=== PATIENT | male | born 1985 | race Caucasian/White ===

== ENCOUNTER 2019-10-27 15:14 | Emergency (ER) | payer OTHER ==
[~2019-10-27] VITALS: Ht 177.8 cm; Wt 95.3 kg
[~2019-10-27 15:14] MED LIST: ADDERALL30 MG PO; AMLODIPINE BESYL5 MG PO; DAYPRO600 M1 PO; LINEZOLID600 MG PO; Motrin,Rufen800 MG PO; NORCO 10-325 T1 EACH PO; ORPHENADRINE C100 M1 PO; PERCOCET 325 MG1 TA2 PO; PREDNISONE10 MG PO; ROBAXIN750 MG PO; SEROQUEL100 MG PO; SEROQUEL400 M1 PO; TRAMADOL HCL50 MG PO; Zestril,Prinivi40 MG PO
[2019-10-27] MEDS ORDERED: SEPTDS PO (16:02)
[2019-10-27] MEDS ORDERED: TYLENOL325 M1 PO (16:02)
== END 2019-10-27 16:06 | disposition home or self-care (01) ==
LOC: ED 15:14
DX: L02.416 Cutaneous abscess of left lower limb (principal); I10 Essential (primary) hypertension; E66.01 Morbid (severe) obesity due to excess calories; F17.200 Nicotine dependence, unspecified, uncomplicated; Z68.42 Body mass index [BMI] 45.0-49.9, adult; Z91.030 Bee allergy status

== ENCOUNTER 2019-11-15 12:56 | Emergency (ER) | payer OTHER ==
[~2019-11-15 12:56] MED LIST changes: +SEPTDS PO; +TYLENOL325 M1 PO
[2019-11-15 16:37] LABS: BASO # 0.1 10*3/uL (0.0-0.1); BASO % 0.4 % (0.0-1.0); EOS % 0.3 % (1.0-4.0); HEMATOCRIT 44.5 % (42.0-52.0); LYMPH # 3.4 10*3/uL (1.3-4.4); LYMPH % 29.8 % (27.0-41.0); MEAN CELL VOLUME 85.2 fl (80.0-94.0); MEAN CORPUSCULAR HGB 29.7 pg (27.0-31.0); MEAN CORPUSCULAR HGB CONC 34.8 g/dl (33.0-37.0); MEAN PLATELET VOLUME 9.9 fl (9.6-12.3); MONO # 0.8 10*3/uL (0.1-1.0); MONO % 6.9 % (3.0-9.0); NEUT # 7.1 10*3/uL (2.3-7.9); NEUT % 62.2 % (47.0-73.0); PLATELET COUNT AUTOMATED 236 10*3/uL (130-400); RED BLOOD COUNT 5.22 10*6/uL (4.50-5.90); RED CELL DISTRI WIDTH 13.1 % (0-14.5); WHITE BLOOD COUNT 11.3 10*3/uL (4.8-10.8)
[2019-11-15 16:48] LABS: ACT PARTIAL THROMBO TIME 24.5 SECONDS (20.0-32.1); INTERNATIONAL NORM RATIO 0.9 (2.0-3.5)
[2019-11-15 16:53] LABS: ALBUMIN 3.6 gm/dl (3.1-4.5); ALKALINE PHOSPHATASE 90 U/L (45-117); BUN 17 mg/dl (7-24); CHLORIDE 106 mmol/L (98-107); LIPASE 55 U/L (73-393); POTASSIUM 3.1 mmol/L (3.5-5.1); SGOT/AST 24 IU/L (3-35); SGPT/ALT 30 U/L (12-78); SODIUM 140 mmol/L (136-145); TOTAL PROTEIN 8.1 gm/dL (6.4-8.2)
[2019-11-15 16:55] LABS: ACETAMINOPHEN (TYLENOL) < 5.0 ug/ml (10-30); ETHYL ALCOHOL < 3.0 mg/dl (<3); TROPONIN I < 0.015 ng/ml (<0.045)
[2019-11-16 05:29] LABS: URINE AMPHETAMINES > 1000 (1000ng/ml); URINE BARBITURATES < 200 (200ng/ml); URINE BENZODIAZEPINES < 200 (200ng/ml); URINE CANNABINOIDS (THC) > 50 (50ng/ml); URINE COCAINE < 300 (300ng/ml); URINE METHADONE < 300 (300ng/ml); URINE OPIATES < 300 (300ng/ml)
[2019-11-16 05:34] LABS: URINE PHENCYCLIDINE < 25 (25ng/ml)
[2019-11-16 05:42] LABS: BILIRUBIN NEGATIVE (NEGATIVE); BLOOD TRACE-LYSED (NEGATIVE); CLARITY SL CLOUDY (CLEAR); COLOR YELLOW (YELLOW); GLUCOSE NEGATIVE (NEGATIVE); KETONE NEGATIVE (NEGATIVE)
[2019-11-16 05:43] LABS: BACTERIA 1+; EPITHELIAL CELLS 0-2; LEUKO ESTERASE NEGATIVE (NEGATIVE); MUCOUS 3+; NITRITE NEGATIVE (NEGATIVE); UROBILINOGEN 0.2 E.U./dl (0.2-1.0)
== END 2019-11-16 06:13 | disposition home or self-care (01) ==
LOC: ED 12:56
PROVIDERS: Emergency Medicine
DX: F19.10 Other psychoactive substance abuse, uncomplicated (principal); I10 Essential (primary) hypertension; E66.01 Morbid (severe) obesity due to excess calories; Z68.42 Body mass index [BMI] 45.0-49.9, adult; Z91.030 Bee allergy status

== ENCOUNTER 2020-06-27 14:58 | Emergency (ER) | payer OTHER ==
[~2020-06-27] VITALS: Ht 177.8 cm; Wt 89.8 kg
[2020-06-27 16:03] LABS: BASO # 0.1 10*3/uL (0.0-0.1); BASO % 0.6 % (0.0-1.0); EOS # 0.1 10*3/uL (0.0-0.4); EOS % 1.4 % (1.0-4.0); HEMATOCRIT 41.4 % (42.0-52.0); LYMPH # 2.8 10*3/uL (1.3-4.4); LYMPH % 32.4 % (27.0-41.0); MEAN CELL VOLUME 83.1 fl (80.0-94.0); MEAN CORPUSCULAR HGB 28.1 pg (27.0-31.0); MEAN CORPUSCULAR HGB CONC 33.8 g/dl (33.0-37.0); MEAN PLATELET VOLUME 9.3 fl (9.6-12.3); MONO # 0.5 10*3/uL (0.1-1.0); MONO % 6.2 % (3.0-9.0); NEUT # 5.1 10*3/uL (2.3-7.9); NEUT % 59.2 % (47.0-73.0); PLATELET COUNT AUTOMATED 229 10*3/uL (130-400); RED BLOOD COUNT 4.98 10*6/uL (4.50-5.90); WHITE BLOOD COUNT 8.6 10*3/uL (4.8-10.8)
[2020-06-27 16:23] LABS: ALBUMIN 3.3 gm/dl (3.1-4.5); ALKALINE PHOSPHATASE 85 U/L (45-117); BUN 11 mg/dl (7-24); CHLORIDE 105 mmol/L (98-107); CREATININE 0.64 mg/dL (0.70-1.30); POTASSIUM 3.5 mmol/L (3.5-5.1); SGOT/AST 12 IU/L (3-35); SGPT/ALT 23 U/L (12-78); SODIUM 139 mmol/L (136-145); TOTAL PROTEIN 7.8 gm/dL (6.4-8.2)
[2020-06-27] MEDS ORDERED: DOXYCYCLINE100 M3 PO (16:55)
== END 2020-06-27 17:35 | disposition home or self-care (01) ==
LOC: ED 14:58
PROVIDERS: Nurse Practitioner
DX: L08.9 Local infection of the skin and subcutaneous tissue, unspecified (principal); M79.645 Pain in left finger(s); F31.9 Bipolar disorder, unspecified; F98.8 Other specified behavioral and emotional disorders with onset usually occurring in childhood and adolescence; F17.200 Nicotine dependence, unspecified, uncomplicated; Z91.030 Bee allergy status; Z79.899 Other long term (current) drug therapy; Z79.2 Long term (current) use of antibiotics

== ENCOUNTER 2020-07-15 16:05 | Inpatient (IN) | payer SELFPAY ==
[~2020-07-15] VITALS: Ht 175.2 cm; Wt 83.2 kg
[~2020-07-15 16:05] MED LIST changes: +DOXYCYCLINE100 M3 PO
[2020-07-15 16:18] VITALS: BP 163/80
[2020-07-15 17:13] LABS: BASO % 0.4 % (0.0-1.0); EOS % 0.3 % (1.0-4.0); HEMATOCRIT 42.6 % (42.0-52.0); LYMPH # 1.9 10*3/uL (1.3-4.4); LYMPH % 24.2 % (27.0-41.0); MEAN CORPUSCULAR HGB 28.5 pg (27.0-31.0); MEAN CORPUSCULAR HGB CONC 33.6 g/dl (33.0-37.0); MEAN PLATELET VOLUME 9.7 fl (9.6-12.3); MONO # 0.5 10*3/uL (0.1-1.0); MONO % 6.4 % (3.0-9.0); NEUT # 5.4 10*3/uL (2.3-7.9); NEUT % 68.6 % (47.0-73.0); PLATELET COUNT AUTOMATED 203 10*3/uL (130-400); RED BLOOD COUNT 5.01 10*6/uL (4.50-5.90); RED CELL DISTRI WIDTH 13.9 % (0-14.5); WHITE BLOOD COUNT 7.8 10*3/uL (4.8-10.8)
[2020-07-15 17:24] LABS: ACT PARTIAL THROMBO TIME 27.5 SECONDS (20.0-32.1)
[2020-07-15 17:32] LABS: ALBUMIN 3.4 gm/dl (3.1-4.5); ALKALINE PHOSPHATASE 99 U/L (45-117); BUN 17 mg/dl (7-24); CHLORIDE 106 mmol/L (98-107); CREATININE 0.92 mg/dL (0.70-1.30); POTASSIUM 3.3 mmol/L (3.5-5.1); SGOT/AST 43 IU/L (3-35); SGPT/ALT 119 U/L (12-78); SODIUM 141 mmol/L (136-145)
[2020-07-15 17:32] LABS: BILIRUBIN 1+ (Negative); BLOOD Negative (Negative); CLARITY Clear (Clear); COLOR Dark Yellow (Yellow); GLUCOSE Negative (Negative); KETONE Trace (Negative); LEUKO ESTERASE Negative (Negative); NITRITE Negative (Negative); SPECIFIC GRAVITY >= 1.030 (1.001-1.030)
[2020-07-15 17:33] LABS: TROPONIN I < 0.015 ng/ml (<0.045)
[2020-07-15 17:46] LABS: BACTERIA TRACE; CALCIUM OXALATE CRYSTALS 3+; MUCOUS 2+
[2020-07-15 19:22] VITALS: BP 148/97
[2020-07-15] MEDS ORDERED: SUBOXONE 8 MG-1 EACH SL (19:43)
[2020-07-15] MEDS ORDERED: MIXED AMPHETAMI30 MG PO (19:43)
[2020-07-15] MEDS ORDERED: BUPROPION HCL150 M1 PO (19:44)
[2020-07-15 20:57] VITALS: BP 126/68
[2020-07-16] VITALS (9 sets, daily range): BP systolic 130–156; BP diastolic 88–109
[2020-07-16 06:40] LABS: BASO % 0.9 % (0.0-1.0); EOS # 0.1 10*3/uL (0.0-0.4); HEMATOCRIT 41.3 % (42.0-52.0); LYMPH # 2.2 10*3/uL (1.3-4.4); LYMPH % 47.6 % (27.0-41.0); MEAN CORPUSCULAR HGB 28.7 pg (27.0-31.0); MEAN CORPUSCULAR HGB CONC 32.2 g/dl (33.0-37.0); MONO # 0.4 10*3/uL (0.1-1.0); MONO % 9.6 % (3.0-9.0); NEUT # 1.8 10*3/uL (2.3-7.9); NEUT % 39.7 % (47.0-73.0); PLATELET COUNT AUTOMATED 174 10*3/uL (130-400); RED BLOOD COUNT 4.64 10*6/uL (4.50-5.90); RED CELL DISTRI WIDTH 14.4 % (0-14.5); WHITE BLOOD COUNT 4.6 10*3/uL (4.8-10.8)
[2020-07-16 06:49] LABS: BUN 13 mg/dl (7-24); CHLORIDE 107 mmol/L (98-107); CREATININE 0.68 mg/dL (0.70-1.30); POTASSIUM 3.8 mmol/L (3.5-5.1); SGOT/AST 43 IU/L (3-35); SGPT/ALT 109 U/L (12-78); SODIUM 141 mmol/L (136-145)
[2020-07-16 06:55] LABS: ALKALINE PHOSPHATASE 83 U/L (45-117)
[2020-07-17] VITALS: BP 137/89
[2020-07-17 08:00] VITALS: BP 132/84
[2020-07-17 12:00] VITALS: BP 117/51; BP 145/85
[2020-07-17 13:06] LABS: ACID FAST SPEC PROCESSING Tissue Grinding (.)
[2020-07-17 16:00] VITALS: BP 135/91
[2020-07-17 20:00] VITALS: BP 148/92; BP 162/107
[2020-07-18] VITALS: BP 140/104; BP 146/96
[2020-07-18 08:00] VITALS: BP 150/107
[2020-07-18 12:00] VITALS: BP 157/98
[2020-07-18] MEDS ORDERED: DOXYCYCLINE100 M3 PO (16:15)
[2020-07-18] MEDS ORDERED: LEVOFLOXACIN750 M2 PO (16:15)
[2020-07-18] MEDS ORDERED: AMOXICILLIN500 M3 PO (16:15)
[2020-09-03 12:07] LABS: ACID FAST CULTURE Negative (.)
== END 2020-07-18 16:26 | disposition left against medical advice (07) | DRG 854 ==
LOC: ED 16:05 → 5E 19:20 → EDHOLD 19:20 → 4E 20:48 → 5E 20:51
PROVIDERS: Internal Medicine; Nurse Practitioner Family; Orthopaedic Surgery; ADMIT Emergency Medicine; ATTEND Emergency Medicine
PROC: 0PBV0ZZ Excision of Left Finger Phalanx, Open Approach (ICD-10-PCS; principal; 2020-07-17)
DX: A41.9 Sepsis, unspecified organism (principal); E44.0 Moderate protein-calorie malnutrition; M86.142 Other acute osteomyelitis, left hand; G40.802 Other epilepsy, not intractable, without status epilepticus; M86.642 Other chronic osteomyelitis, left hand; R65.20 Severe sepsis without septic shock; E87.6 Hypokalemia; D72.819 Decreased white blood cell count, unspecified; F31.9 Bipolar disorder, unspecified; M06.9 Rheumatoid arthritis, unspecified; F17.210 Nicotine dependence, cigarettes, uncomplicated; D64.9 Anemia, unspecified; R74.01 Elevation of levels of liver transaminase levels; B19.20 Unspecified viral hepatitis C without hepatic coma; I10 Essential (primary) hypertension; B95.4 Other streptococcus as the cause of diseases classified elsewhere; Z20.822 Contact with and (suspected) exposure to COVID-19; B95.62 Methicillin resistant Staphylococcus aureus infection as the cause of diseases classified elsewhere; E66.01 Morbid (severe) obesity due to excess calories; Z53.29 Procedure and treatment not carried out because of patient's decision for other reasons; B96.5 Pseudomonas (aeruginosa) (mallei) (pseudomallei) as the cause of diseases classified elsewhere; R73.9 Hyperglycemia, unspecified; E83.41 Hypermagnesemia; Z91.030 Bee allergy status; Z83.3 Family history of diabetes mellitus; Z82.49 Family history of ischemic heart disease and other diseases of the circulatory system; Z84.0 Family history of diseases of the skin and subcutaneous tissue; Z79.899 Other long term (current) drug therapy; Z68.27 Body mass index [BMI] 27.0-27.9, adult

== ENCOUNTER 2021-01-07 13:55 | Emergency (ER) | payer OTHER ==
[~2021-01-07] VITALS: Ht 175.2 cm; Wt 77.1 kg
[~2021-01-07 13:55] MED LIST changes: +AMOXICILLIN500 M3 PO; +BUPROPION HCL150 M1 PO; +LEVOFLOXACIN750 M2 PO; +MIXED AMPHETAMI30 MG PO; +SUBOXONE 8 MG-1 EACH SL
[2021-01-07 14:58] LABS: BASO % 0.6 % (0.0-1.0); EOS % 0.4 % (1.0-4.0); HEMATOCRIT 38.7 % (42.0-52.0); LYMPH # 1.9 10*3/uL (1.3-4.4); LYMPH % 27.5 % (27.0-41.0); MEAN CELL VOLUME 83.4 fl (80.0-94.0); MEAN CORPUSCULAR HGB 27.8 pg (27.0-31.0); MEAN CORPUSCULAR HGB CONC 33.3 g/dl (33.0-37.0); MEAN PLATELET VOLUME 9.5 fl (9.6-12.3); MONO # 0.5 10*3/uL (0.1-1.0); MONO % 6.9 % (3.0-9.0); NEUT # 4.6 10*3/uL (2.3-7.9); NEUT % 64.5 % (47.0-73.0); PLATELET COUNT AUTOMATED 245 10*3/uL (130-400); RED BLOOD COUNT 4.64 10*6/uL (4.50-5.90); RED CELL DISTRI WIDTH 13.3 % (0-14.5); WHITE BLOOD COUNT 7.1 10*3/uL (4.8-10.8)
[2021-01-07 15:14] LABS: ACETAMINOPHEN (TYLENOL) < 5.0 ug/ml (10-30); ALBUMIN 3.4 gm/dl (3.1-4.5); ALKALINE PHOSPHATASE 95 U/L (45-117); BUN 22 mg/dl (7-24); CHLORIDE 111 mmol/L (98-107); CREATININE 0.79 mg/dL (0.70-1.30); ETHYL ALCOHOL < 3.0 mg/dl (<3); LIPASE 31 U/L (73-393); POTASSIUM 3.4 mmol/L (3.5-5.1); SGOT/AST 29 IU/L (3-35); SGPT/ALT 50 U/L (12-78); SODIUM 142 mmol/L (136-145); TOTAL PROTEIN 8.2 gm/dL (6.4-8.2); TROPONIN I < 0.015 ng/ml (<0.045)
[2021-01-07 16:26] LABS: BILIRUBIN Negative (Negative); BLOOD Trace-Lysed (Negative); CLARITY Clear (Clear); COLOR Yellow (Yellow); GLUCOSE Negative (Negative); KETONE Negative (Negative); LEUKO ESTERASE Negative (Negative); NITRITE Negative (Negative); PH 5.5 (4.5-8.0); UROBILINOGEN 0.2 E.U./dl (0.0-1.0)
[2021-01-07 16:34] LABS: BACTERIA TRACE; EPITHELIAL CELLS 0-2; RBC 0-2 rbc/hpf (0-2)
[2021-01-07 16:35] LABS: URINE AMPHETAMINES > 1000 (1000ng/ml); URINE BARBITURATES < 200 (200ng/ml); URINE BENZODIAZEPINES < 200 (200ng/ml); URINE CANNABINOIDS (THC) < 50 (50ng/ml); URINE COCAINE < 300 (300ng/ml); URINE METHADONE > 300 (300ng/ml); URINE OPIATES < 300 (300ng/ml); URINE PHENCYCLIDINE < 25 (25ng/ml)
== END 2021-01-07 19:58 | disposition left against medical advice (07) ==
LOC: ED 13:55
PROVIDERS: Emergency Medicine
DX: F15.90 Other stimulant use, unspecified, uncomplicated (principal); F20.9 Schizophrenia, unspecified; F17.200 Nicotine dependence, unspecified, uncomplicated; Z91.030 Bee allergy status; Z79.2 Long term (current) use of antibiotics; Z79.899 Other long term (current) drug therapy

== ENCOUNTER 2022-04-23 10:17 | Emergency (ER) | payer MEDICAID ==
[~2022-04-23] VITALS: Ht 177.8 cm; Wt 81.6 kg
[2022-04-23 13:48] LABS: BASO # 0.1 10*3/uL (0.0-0.1); BASO % 0.5 % (0.0-1.0); EOS % 0.3 % (1.0-4.0); HEMATOCRIT 40.8 % (42.0-52.0); LYMPH # 1.3 10*3/uL (1.3-4.4); LYMPH % 11.7 % (27.0-41.0); MEAN CELL VOLUME 84.6 fl (80.0-94.0); MEAN CORPUSCULAR HGB 29.5 pg (27.0-31.0); MEAN CORPUSCULAR HGB CONC 34.8 g/dl (33.0-37.0); MEAN PLATELET VOLUME 9.9 fl (9.6-12.3); MONO # 0.4 10*3/uL (0.1-1.0); MONO % 3.4 % (3.0-9.0); NEUT % 83.7 % (47.0-73.0); PLATELET COUNT AUTOMATED 256 10*3/uL (130-400); RED BLOOD COUNT 4.82 10*6/uL (4.50-5.90); RED CELL DISTRI WIDTH 13.9 % (0-14.5); WHITE BLOOD COUNT 10.7 10*3/uL (4.8-10.8)
[2022-04-23 14:05] LABS: ACT PARTIAL THROMBO TIME 27.9 SECONDS (20.0-32.1); INTERNATIONAL NORM RATIO 0.9 (2.0-3.5)
[2022-04-23 14:09] LABS: ALKALINE PHOSPHATASE 87 U/L (46-116); BUN 14 mg/dl (9-23); CHLORIDE 103 mmol/L (98-107); CPK 231 U/L (34-171); CREATININE 0.57 mg/dL (0.70-1.30); POTASSIUM 3.2 mmol/L (3.4-5.1); SGPT/ALT 41 U/L (10-49); SODIUM 138 mmol/L (136-145); TOTAL PROTEIN 7.5 gm/dL (6.0-8.0)
[2022-04-23 14:12] LABS: ETHYL ALCOHOL < 3.0 mg/dl (<3)
[2022-04-23 15:00] LABS: URINE AMPHETAMINES Positive (1000ng/ml); URINE BARBITURATES Negative (200ng/ml); URINE BENZODIAZEPINES Negative (200ng/ml); URINE CANNABINOIDS (THC) Positive (50ng/ml); URINE COCAINE Negative (300ng/ml); URINE METHADONE Negative (300ng/ml); URINE OPIATES Negative (300ng/ml); URINE PHENCYCLIDINE Negative (25ng/ml)
== END 2022-04-23 16:30 | disposition short-term general hospital (02) ==
LOC: ED 10:17
PROVIDERS: Family Medicine
DX: S02.0XXA Fracture of vault of skull, initial encounter for closed fracture (principal); S01.112A Laceration without foreign body of left eyelid and periocular area, initial encounter; S61.412A Laceration without foreign body of left hand, initial encounter; Z91.030 Bee allergy status; F19.10 Other psychoactive substance abuse, uncomplicated; Z79.899 Other long term (current) drug therapy; F17.200 Nicotine dependence, unspecified, uncomplicated; Y00.XXXA Assault by blunt object, initial encounter; Y93.89 Activity, other specified; Y92.89 Other specified places as the place of occurrence of the external cause; Y99.8 Other external cause status

== ENCOUNTER 2023-08-06 12:35 | Emergency (ER) | payer MEDICAID ==
[~2023-08-06] VITALS: Ht 177.8 cm; Wt 81.6 kg
[2023-08-06] MEDS ORDERED: CLINDAMYCIN HCL 300 MG CAPSULE PO ONE (12:40)
[2023-08-06] MEDS ORDERED: CLINDAMYCIN HC300 MG PO ×2 (12:44→13:15)
== END 2023-08-06 13:16 | disposition home or self-care (01) ==
LOC: ED 12:35
DX: L03.90 Cellulitis, unspecified (principal); Z91.030 Bee allergy status; F17.200 Nicotine dependence, unspecified, uncomplicated; I10 Essential (primary) hypertension; F31.9 Bipolar disorder, unspecified

== ENCOUNTER 2024-02-06 20:31 | Emergency (ER) | payer MEDICAID ==
[~2024-02-06] VITALS: Ht 175.2 cm; Wt 83.9 kg
[~2024-02-06 20:31] MED LIST changes: +CLINDAMYCIN HC300 MG PO
[2024-02-06 21:49] LABS: BASO % 0.4 % (0.0-1.0); EOS % 0.3 % (1.0-4.0); LYMPH # 1.7 10*3/uL (1.3-4.4); LYMPH % 17.8 % (27.0-41.0); MEAN CELL VOLUME 83.3 fl (80.0-94.0); MEAN CORPUSCULAR HGB 27.6 pg (27.0-31.0); MEAN CORPUSCULAR HGB CONC 33.2 g/dl (33.0-37.0); MEAN PLATELET VOLUME 9.8 fl (9.6-12.3); MONO # 0.7 10*3/uL (0.1-1.0); MONO % 6.7 % (3.0-9.0); NEUT # 7.3 10*3/uL (2.3-7.9); NEUT % 74.6 % (47.0-73.0); PLATELET COUNT AUTOMATED 236 10*3/uL (130-400); RED BLOOD COUNT 4.56 10*6/uL (4.50-5.90); RED CELL DISTRI WIDTH 14.6 % (0-14.5); WHITE BLOOD COUNT 9.8 10*3/uL (4.8-10.8)
[2024-02-06 22:09] LABS: BUN 17 mg/dl (9-23); CHLORIDE 103 mmol/L (98-107); POTASSIUM 2.8 mmol/L (3.4-5.1)
[2024-02-06] MEDS ORDERED: POTASSIUM CHLORIDE 20 MEQ TAB PO ONE (23:30)
[2024-02-06] MEDS ORDERED: SODIUM CHLORIDE 0.9% 500 ML IV ONE (23:50)
[2024-02-07] MEDS ORDERED: POTASSIUM CHLORIDE IN WATER 100 ML IV SCH
== END 2024-02-07 01:00 | disposition left against medical advice (07) ==
LOC: ED 20:31
PROVIDERS: Emergency Medicine
DX: S40.929A Unspecified superficial injury of unspecified upper arm, initial encounter (principal); S80.929A Unspecified superficial injury of unspecified lower leg, initial encounter; E87.6 Hypokalemia; F31.9 Bipolar disorder, unspecified; M19.90 Unspecified osteoarthritis, unspecified site; Z91.030 Bee allergy status; E83.41 Hypermagnesemia; F17.200 Nicotine dependence, unspecified, uncomplicated; X58.XXXA Exposure to other specified factors, initial encounter; Y93.89 Activity, other specified; Y92.89 Other specified places as the place of occurrence of the external cause; Y99.8 Other external cause status

== ENCOUNTER 2024-12-18 15:39 | Emergency (ER) | payer OTHER ==
[~2024-12-18] VITALS: Ht 177.8 cm; Wt 89.8 kg
[2024-12-18 21:46] LABS: BILIRUBIN Negative (Negative); BLOOD Negative (Negative); CLARITY Turbid (Clear); COLOR Yellow (Yellow); KETONE Negative (Negative); LEUKO ESTERASE Negative (Negative); NITRITE Negative (Negative); PH 7.0 (4.5-8.0); SPECIFIC GRAVITY 1.020 (1.001-1.030); UROBILINOGEN 1.0 E.U./dl (0.0-1.0)
[2024-12-18 21:54] LABS: URINE AMPHETAMINES Positive (1000ng/ml); URINE BARBITURATES Negative (200ng/ml); URINE BENZODIAZEPINES Negative (200ng/ml); URINE CANNABINOIDS (THC) Positive (50ng/ml); URINE COCAINE Negative (300ng/ml); URINE METHADONE Negative (300ng/ml); URINE OPIATES Negative (300ng/ml); URINE PHENCYCLIDINE Negative (25ng/ml)
[2024-12-18 22:04] LABS: BACTERIA 2+; WBC 0-2 wbc/hpf (0-5)
[2024-12-18] MEDS ORDERED: AZITHROMYCIN 250 MG TAB PO ONE (23:30)
[2024-12-19] MEDS ORDERED: VIBRAMYCIN100 MG PO (00:13)
[2024-12-19] MEDS ORDERED: ZINC OXIDE 1 OZ TUBE T ONE (00:15)
[2024-12-19] MEDS ORDERED: AZITHROMYCIN 250 MG TAB PO ONE (01:35)
== END 2024-12-19 00:29 | disposition home or self-care (01) ==
LOC: ED 15:39
PROVIDERS: Nurse Practitioner
DX: R60.0 Localized edema (principal); A63.0 Anogenital (venereal) warts; N39.0 Urinary tract infection, site not specified; Z20.2 Contact with and (suspected) exposure to infections with a predominantly sexual mode of transmission; Z91.030 Bee allergy status